=== PATIENT | female | born 1975 | race Caucasian/White ===

== ENCOUNTER 2023-10-29 00:28 | Emergency (ER) | payer OTHER ==
[2023-10-29] MEDS ORDERED: Ringers Lactate 2,000 ML IV ONE (00:53)
[2023-10-29 01:21] LABS: Absolute Lymphocytes (CBC) 0.4 K/uL (0.7-4.9); Absolute Monocytes 0.3 K/uL (0.1-1.3); Absolute Neutrophil 4.6 K/uL (1.8-8.0); Basophils % 0.2 % (0-1.3); Eosinophils % 0.7 % (0-4.4); Hematocrit 39.5 % (36.0-45.0); Hemoglobin 13.3 g/dL (12.0-15.0); Lymphocytes % 7.6 % (15.3-44.8); MCH 31.4 pg (27.0-35.0); MCHC 33.7 g/dL (32.0-36.0); MCV 93.2 fL (80-100); MPV 7.1 fL (7.6-11.3); Monocytes % 4.9 % (3.3-12.3); Neutrophils % 86.6 % (41.7-73.7); Nucleated Red Blood Cells % 0.4 % (0-0); Platelets 185 thou/uL (152-406); RBC Red Blood Cell Count 4.24 M/uL (3.86-4.86)
[2023-10-29 01:33] LABS: Albumin 3.8 g/dL (3.4-5.0); Albumin/Globulin Ratio 1.3 (1.1-1.8); Anion Gap 7.3 mEq/L (5.0-15.0); Bilirubin Total 0.7 mg/dL (0.2-1.0); Globulin 2.9 g/dL (2.3-3.5); Potassium 4.3 mEq/L (3.5-5.1); Protein, Total 6.7 g/dL (6.4-8.2)
--- NOTE | 2023-10-29 02:07 | EDPHYS ---
Physician Documentation [facility] Name: Annie Castellon Age: 48 yrs Sex: Female : 1975 Arrival Date: 10/29/2023 Time: 00:28 Bed 15 Private MD: ED Physician Zach Case HPI: 10/28 00:55 This 48 yrs old Female presents to ER via EMS with complaints of Abdominal Pain, sp3 Diarrhea. 00:55 48-year-old female with no significant past medical history presents with multiple sp3 rounds of diarrhea, syncope x 1 and abdominal cramping after eating seafood at local restaurant. Patient is from [place] here on vacation. She denies any headache, neck pain, chest pain, shortness of breath, back pain, fever, vomiting, rash, bleeding, or any other signs or symptoms on ROS at this time. Diarrhea has somewhat subsided. However patient feels extremely weak and dehydrated. Urine output has been decreased.. 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 - Infectious Disease History:: Denies. - Social history:: Smoking status: Patient denies any tobacco usage or history of. Patient/guardian denies using alcohol, street drugs. ROS: 00:58 Constitutional: Negative for fever, chills, and weight loss, Eyes: Negative for injury, sp3 pain, redness, and discharge, ENT: Negative for injury, pain, and discharge, Neck: Negative for injury, pain, and swelling, Cardiovascular: Negative for chest pain, palpitations, and edema, Respiratory: Negative for shortness of breath, cough, wheezing, and pleuritic chest pain, Back: Negative for injury and pain, MS/Extremity: Negative for injury and deformity, Skin: Negative for injury, rash, and discoloration, Neuro: Negative for headache, weakness, numbness, tingling, and seizure, Psych: Negative for depression, anxiety, suicide ideation, homicidal ideation, and hallucinations, Allergy/Immunology: Negative for hives, rash, and allergies, Endocrine: Negative for neck swelling, polydipsia, polyuria, polyphagia, and marked weight changes, Hematologic/Lymphatic: Negative for swollen nodes, abnormal bleeding, and unusual bruising, 00:58 All other systems are negative, Exam: 00:58 Constitutional: This is a well developed, well nourished patient who is awake, alert, sp3 and in no acute distress. Head/Face: Normocephalic, atraumatic. Eyes: Pupils equal round and reactive to light, extra-ocular motions intact. Lids and lashes normal. Conjunctiva and sclera are non-icteric and not injected. Cornea within normal limits. Periorbital areas with no swelling, redness, or edema. Neck: Trachea midline, no thyromegaly or masses palpated, and no cervical lymphadenopathy. Supple, full range of motion without nuchal rigidity, or vertebral point tenderness. No Meningismus. Chest/axilla: Normal chest wall appearance and motion. Nontender with no deformity. No lesions are appreciated. Cardiovascular: Regular rate and rhythm with a normal S1 and S2. No gallops, murmurs, or rubs. Normal PMI, no JVD. No pulse deficits. Respiratory: Lungs have equal breath sounds bilaterally, clear to auscultation and percussion. No rales, rhonchi or wheezes noted. No increased work of breathing, no retractions or nasal flaring. Back: No spinal tenderness. No costovertebral tenderness. Full range of motion. Skin: Warm, dry with normal turgor. Normal color with no rashes, no lesions, and no evidence of cellulitis. MS/ Extremity: Pulses equal, no cyanosis. Neurovascular intact. Full, normal range of motion. Neuro: Awake and alert, GCS 15, oriented to person, place, time, and situation. Cranial nerves II-XII grossly intact. Motor strength 5/5 in all extremities. Sensory grossly intact. Cerebellar exam normal. Normal gait. Psych: Awake, alert, with orientation to person, place and time. Behavior, mood, and affect are within normal limits. 00:58 Abdomen/GI: Diffuse cramping on palpation without peritoneal signs, rebound or guarding. Hyperactive bowel sounds noted., Vital Signs: 00:34 BP 94 / 62; Pulse 74; Resp 19; Temp 98.1(O); Pulse Ox 97% on R/A; MAP 72 mmHg; Pain tm6 7/10; 01:01 Weight 70.31 kg; Height 5 ft. 9 in. ; tm6 01:58 BP 87 / 52; Pulse 65; Pulse Ox 98% on R/A; Pain 0/10; tm6 02:18 BP 89 / 53; Pulse 66; Pulse Ox 96% on R/A; MAP 64 mmHg; tm6 02:23 BP 91 / 49; Pulse 66; Resp 18; Temp 98.1; Pulse Ox 97% on R/A; Pain 0/10; tm6 01:01 Body Mass Index 22.89 (70.31 kg, 175.26 cm) tm6 00:34 Pain Scale: Adult tm6 01:58 Pain Scale: Adult tm6 02:23 Pain Scale: Adult tm6 MDM: 00:35 Patient medically screened. sp3 00:59 Data reviewed: vital signs, nurses notes, lab test result(s). ED course: 48-year-old sp3 female with diarrhea and dehydration. Differential diagnosis includes foodborne illness, other viral illness, electrolyte abnormality, or other intra-abdominal pathology. Clinically ruled out surgical abdomen. Workup will include laboratory values including lactate. Treatment will include lactated Ringer's 2 L with probable subsequent discharge assuming no significant findings on workup. Patient is okay with the plan and all questions been answered.. 02:06 ED course: Patient feels significantly better after fluids. Blood pressure is coming sp3 up. We will safely discharge home at this time.. 10/28 00:40 Order name: CBC with Diff; Complete Time: 02:26 sp3 10/28 00:40 Order name: CMP; Complete Time: 02: sp3 10/28 00:40 Order name: Lipase; Complete Time: 02: sp3 10/28 00:40 Order name: Urinalysis w/ reflexes; Complete Time: 02:26 sp3 10/28 00:40 Order name: Lactate w/ 2H reflex if indic.; Complete Time: 02: sp3 10/28 01:36 Order name: Manual Differential; Complete Time: 02:26 EDMS 10/28 00:40 Order name: IV Saline Lock; Complete Time: 01:02 sp3 10/28 00:40 Order name: Labs collected and sent; Complete Time: 01: sp3 10/28 02:02 Order name: Vital Signs; Complete Time: 02:20 sp3 Administered Medications: 01:02 Drug: Lactated Ringers Solution IV 2000 ml IV at 2000 per protocol bolus Route: IV; al5 Rate: 2000 per protocol; Site: right antecubital; 02:23 Follow up: IV Status: Completed infusion; IV Intake: 2000ml tm6 Disposition Summary: 10/29/23 02:07 Discharge Ordered Notes: Location: Home sp3 Condition: Stable sp3 Diagnosis - Dehydration, foodborne illness, diarrhea sp3 Followup: sp3 - With: Private Physician - When: Upon discharge from the Emergency Department - Reason: If symptoms return, Continuance of care Discharge Instructions: - Discharge Summary Sheet sp3 - Food Poisoning and Traveling sp3 Forms: - Medication Reconciliation Form sp3 - Antibiotic Education sp3 - Prescription Opioid Use sp3 - Patient Portal Instructions sp3 - Leadership Thank You Letter sp3 Signatures: Dispatcher [employer] Zach Grant MD MD sp3 Lionel Zabala RN RN tm6 Melissa Slade RN RN al5
--- NOTE | 2023-10-29 02:07 | ER ---
Nurse's Notes [facility] Name: Annie Castellon Age: 48 yrs Sex: Female : 1975 Arrival Date: 10/29/2023 Time: 00:28 Bed 15 Private MD: Diagnosis: Dehydration, foodborne illness, diarrhea Presentation: 10/28 00:34 Chief complaint: EMS states: around 1930, patient started to have abdominal cramps and tm6 diarrhea. Patient passed out while sitting on toilet twice. Coronavirus screen: Vaccine status: Patient reports being unvaccinated. Ebola Screen: Patient negative for fever greater than or equal to 101.5 degrees Fahrenheit, and additional compatible Ebola Virus Disease symptoms Patient denies exposure to infectious person. Patient denies travel to an Ebola-affected area in the 21 days before illness onset. No symptoms or risks identified at this time. Initial Sepsis Screen: Does the patient meet any 2 criteria? No. Patient's initial sepsis screen is negative. Does the patient have a suspected source of infection? No. Patient's initial sepsis screen is negative. Risk Assessment: Do you want to hurt yourself or someone else? Patient reports no desire to harm self or others. Onset of symptoms was October 28, 2023 at 19:30. 00:34 Method Of Arrival: EMS: [facility] tm6 00:34 Acuity: JENNIFER 3 tm6 Triage Assessment: 00:37 General: Appears ill, Behavior is calm, cooperative. Pain: Complains of pain in tm6 suprapubic area Pain does not radiate. Pain currently is 7 out of 10 on a pain scale. Quality of pain is described as crampy, Also complains of diarrhea. EENT: No signs and/or symptoms were reported regarding the EENT system. Neuro: Level of Consciousness is awake, alert, obeys commands, Oriented to person, place, time, situation. Neuro: Reports a syncopal episode. Cardiovascular: Patient's skin is warm and dry. Respiratory: Airway is patent Respiratory effort is even, unlabored, Respiratory pattern is regular, symmetrical. GI: Abdomen is flat, non-distended, Abd is soft and non tender X 4 quads. Reports diarrhea. : Reports cramping. Derm: No signs and/or symptoms reported regarding the dermatologic system. Musculoskeletal: No signs and/or symptoms reported regarding the musculoskeletal system. 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 - Infectious Disease History:: Denies. - Social history:: Smoking status: Patient denies any tobacco usage or history of. Patient/guardian denies using alcohol, street drugs. Screenin:41 [facility] ED Fall Risk Assessment (Adult) History of falling in the last 3 months, tm6 including since admission Yes- physiologic fall (2 pts) Confusion or Disorientation No (0 pts) Intoxicated or Sedated No (0 pts) Impaired Gait No (0 pts) Mobility Assist Device Used No (0 pt) Altered Elimination No (0 pt) Score/Fall Risk Level 0 - 2 = Low Risk Oriented to surroundings, Maintained a safe environment, Educated pt \T\ family on fall prevention, incl call for assistance when getting out of bed. Abuse screen: Denies threats or abuse. Denies injuries from another. Nutritional screening: No deficits noted. Tuberculosis screening: No symptoms or risk factors identified. Assessment: 01:02 Reassessment: see triage assessment. GI: Bowel sounds present X 4 quads. tm6 01:58 Reassessment: Patient appears in no apparent distress at this time. Patient and/or tm6 family updated on plan of care and expected duration. Pain level reassessed. Patient is alert, oriented x 3, equal unlabored respirations, skin warm/dry/pink. Vital Signs: 00:34 BP 94 / 62; Pulse 74; Resp 19; Temp 98.1(O); Pulse Ox 97% on R/A; MAP 72 mmHg; Pain tm6 7/10; 01:01 Weight 70.31 kg; Height 5 ft. 9 in. ; tm6 01:58 BP 87 / 52; Pulse 65; Pulse Ox 98% on R/A; Pain 0/10; tm6 02:18 BP 89 / 53; Pulse 66; Pulse Ox 96% on R/A; MAP 64 mmHg; tm6 02:23 BP 91 / 49; Pulse 66; Resp 18; Temp 98.1; Pulse Ox 97% on R/A; Pain 0/10; tm6 01:01 Body Mass Index 22.89 (70.31 kg, 175.26 cm) tm6 00:34 Pain Scale: Adult tm6 01:58 Pain Scale: Adult tm6 02:23 Pain Scale: Adult tm6 ED Course: 00:34 Patient arrived in ED. tm6 00:34 Zach Case MD is Attending Physician. sp3 00:37 Triage completed. tm6 00:37 Arm band placed on right wrist. tm6 00:41 Patient has correct armband on for positive identification. Bed in low position. Call tm6 light in reach. Side rails up X2. Provided Education on: use of call echevarria. Client placed on continuous cardiac and pulse oximetry monitoring. NIBP monitoring applied. Pulse ox on. NIBP on. Door closed. Noise minimized. 00:45 Inserted saline lock: 20 gauge in right antecubital area, using aseptic technique. tm6 Blood collected. Flushed with 10 mL NS. 00:50 Melissa Slade RN is Primary Nurse. al5 01:55 Lionel Zabala RN is Primary Nurse. tm6 01:55 Urinalysis w/ reflexes Sent. tm6 02:19 No provider procedures requiring assistance completed. tm6 02:24 IV discontinued, intact, bleeding controlled, No redness/swelling at site. Pressure tm6 dressing applied. Administered Medications: 01:02 Drug: Lactated Ringers Solution IV 2000 ml IV at 2000 per protocol bolus Route: IV; al5 Rate: 2000 per protocol; Site: right antecubital; 02:23 Follow up: IV Status: Completed infusion; IV Intake: 2000ml tm6 Medication: 00:41 VIS not applicable for this client. tm6 Intake: 02:23 IV: 2000ml; Total: 2000ml. tm6 Outcome: 02:07 Discharge ordered by . sp3 02:32 Discharged to home ambulatory, with family, tm6 02:32 Condition: stable 02:32 Discharge instructions given to patient, family, Instructed on discharge instructions, follow up and referral plans. Demonstrated understanding of instructions, follow-up care, 02:32 Patient left the ED. tm6 Signatures: Zach Case MD MD sp3 Lionel Zabala RN RN tm6 Langhorst, Melissa, RN RN al5
[2023-10-29 02:19] LABS: Sqamous Epithelial None Seen /HPF (None Seen); Urine Bacteria None Seen /HPF (<20); Urine Bilirubin NEGATIVE (Negative); Urine Blood Negative (Negative); Urine Clarity Clear (Clear); Urine Color Yellow (Yellow); Urine Culture Reflex Order NOT NEEDED; Urine Glucose NEGATIVE (Negative); Urine Ketones NEGATIVE (Negative); Urine Microscopic Reflex YN ORDER UMIC; Urine Mucus 2+ /HPF (None Seen); Urine Nitrite NEGATIVE (Negative); Urine Protein TRACE (Negative); Urine RBC None Seen /HPF (None Seen); Urine Urobilinogen Normal (Normal); Urine WBC <5 /HPF (<5)
[2023-10-29 02:22] LABS: Band Neutrophils 17 % (0-1); Differential Total Cells Count 100; Lymphocytes 6 % (15-42); Monocytes 3 % (0-10); Segmented Neutrophils 74 % (40-80)
[2023-10-29 02:23] LABS: Blood Morphology Comment NOT SEEN (NOT SEEN); Platelet Estimate ADEQ
[2023-10-29 03:12] VITALS: TEMP 98.1
[2023-10-29 03:16] VITALS: BP 91/49; O2SAT 97
== END 2023-10-29 02:32 | disposition home or self-care (01) ==
LOC: ER 00:28
DX: E86.0 Dehydration (principal); A05.9 Bacterial foodborne intoxication, unspecified
CPT/HCPCS: 85025; 81001; 36415; 83605; 83690; 80053; 96360; 99284; J7120